=== PATIENT | female | born 1955 | race Caucasian/White ===

== ENCOUNTER → 2025-02-24 | Outpatient (BNVA) | payer BC, SELFPAY | END | disposition home or self-care (01) | PROVIDERS: PCP Family Medicine; Referring Provider Family Medicine; Visit Provider Urology | DX: N31.9 Neuromuscular dysfunction of bladder, unspecified (principal); G82.20 Paraplegia, unspecified; L89.90 Pressure ulcer of unspecified site, unspecified stage; N18.30 Chronic kidney disease, stage 3 unspecified; Z99.3 Dependence on wheelchair; E78.5 Hyperlipidemia, unspecified; Z93.3 Colostomy status; E66.9 Obesity, unspecified | CPT/HCPCS: 99203; G0463 ==